=== PATIENT | male | born 1940 | race Caucasian/White ===

== ENCOUNTER 2017-08-02 18:41 | Inpatient (IN) | payer OTHER ==
[~2017-08-02] VITALS: Ht 180.3 cm; Wt 65.1 kg
[2017-08-02 18:41] VITALS: BP 150/67
[~2017-08-02 18:41] MED LIST: AMOXICILLIN500 M3 PO; ASPIRIN81 M1 PO; AVODART0.5 MG PO; COMBIVENT RESPIM4 GM INH; COUMADIN2.5 MG PO; COUMADIN7.5 M1 PO; LISINOPRIL5 MG PO; PRILOSEC40 M1 PO; RENAL CAPS1 SGL PO; RENVELA800 MG PO; ROBITUSSIN AC 110 ML PO; SIMVASTATIN40 MG PO; TOPROL XL25 MG PO; TRIPHROCAPS SOFT1 MG PO; TYLENOL325 M1 PO; TYLENOL500 MG PO; WARFARIN SOD2 MG PO
--- NOTE | 2017-08-02 19:04 | NUR ---
NURSE TO NURSE REPORT GIVEN TO THIS RN.PT RESTING IN BED AT THIS TIME.DENIES ANY NEEDS AT THIS TIME.
[2017-08-02 19:50] LABS: BASO % 0.5 % (0.0-1.0); EOS # 0.2 10*3/uL (0.0-0.4); EOS % 3.7 % (1.0-4.0); HEMATOCRIT 30.4 % (42.0-52.0); HEMOGLOBIN 9.9 g/dl (14.0-18.0); LYMPH # 0.7 10*3/uL (1.3-4.4); MEAN CELL VOLUME 106.7 fl (80.0-94.0); MEAN CORPUSCULAR HGB 34.7 pg (27.0-31.0); MEAN CORPUSCULAR HGB CONC 32.6 g/dl (33.0-37.0); MEAN PLATELET VOLUME 10.2 fl (9.6-12.3); MONO # 0.5 10*3/uL (0.1-1.0); MONO % 7.8 % (3.0-9.0); NEUT # 4.9 10*3/uL (2.3-7.9); NEUT % 76.5 % (47.0-73.0); PLATELET COUNT AUTOMATED 115 10*3/uL (130-400); RED BLOOD COUNT 2.85 10*6/uL (4.50-5.90); WHITE BLOOD COUNT 6.4 10*3/uL (4.8-10.8)
[2017-08-02 19:58] VITALS: BP 129/62
[2017-08-02 20:07] LABS: ALBUMIN 3.7 gm/dl (3.1-4.5); CREATININE 4.57 mg/dL (0.70-1.30); POTASSIUM 4.6 mmol/L (3.5-5.1); TOTAL PROTEIN 7.1 gm/dL (6.4-8.2)
--- NOTE | 2017-08-02 20:09 | NUR ---
PT IV IN RT HAND REMOVED INTACT AND PRESSURE DRESSING APPLIED.PT C/O PAIN WITH INFUSION OF NORMAL SALINE.20GAUGE ANGIOCATH PLACED RAC.IV FLUSHES WELL WITH GOO BLOOD RETURN.NORMAL SALINE INFUSING.
--- NOTE | 2017-08-02 20:12 | NUR ---
LAB CALLED WITH CRITICAL VALUE OF TROPONIN 0.067.SHLOMO ELLIS NOTIFIED.
[2017-08-02 20:13] LABS: INTERNATIONAL NORM RATIO 2.1 (2.0-3.5); TROPONIN I 0.067 ng/ml (<0.045)
[2017-08-02 21:42] VITALS: BP 138/60
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
[2017-08-02 22:20] VITALS: BP 161/59
[2017-08-02 22:57] VITALS: BP 138/60
[2017-08-03 04:00] VITALS: BP 120/42
[2017-08-03 04:57] LABS: BASO % 0.5 % (0.0-1.0); EOS # 0.4 10*3/uL (0.0-0.4); EOS % 5.2 % (1.0-4.0); HEMATOCRIT 26.8 % (42.0-52.0); HEMOGLOBIN 8.8 g/dl (14.0-18.0); LYMPH # 1.4 10*3/uL (1.3-4.4); LYMPH % 18.8 % (27.0-41.0); MEAN CELL VOLUME 106.3 fl (80.0-94.0); MEAN CORPUSCULAR HGB 34.9 pg (27.0-31.0); MEAN CORPUSCULAR HGB CONC 32.8 g/dl (33.0-37.0); MONO # 0.7 10*3/uL (0.1-1.0); MONO % 8.8 % (3.0-9.0); NEUT # 4.9 10*3/uL (2.3-7.9); NEUT % 66.6 % (47.0-73.0); PLATELET COUNT AUTOMATED 105 10*3/uL (130-400); RED BLOOD COUNT 2.52 10*6/uL (4.50-5.90); RED CELL DISTRI WIDTH 14.1 % (0-14.5); WHITE BLOOD COUNT 7.4 10*3/uL (4.8-10.8)
[2017-08-03 05:12] LABS: ACT PARTIAL THROMBO TIME 31.4 SECONDS (20.8-31.5); INTERNATIONAL NORM RATIO 2.1 (2.0-3.5)
[2017-08-03 05:32] LABS: ALBUMIN 3.4 gm/dl (3.1-4.5); CREATININE 5.3 mg/dL (0.70-1.30); FREE T4 0.88 ng/dl (0.76-1.46); PHOSPHOROUS 3.6 mg/dL (2.5-4.9); POTASSIUM 4.1 mmol/L (3.5-5.1); TOTAL PROTEIN 6.4 gm/dL (6.4-8.2)
[2017-08-03 05:36] LABS: THYROID STIM HORMONE (HS) 2.47 uIU/ml (0.358-4.75)
--- NOTE | 2017-08-03 07:50 | NUR ---
IN TO SEE PT, PT ALERT ORIENTED AND PLEASANT/COOPERTIVE. ASSESSMENT COMPLETE, HEART RATE 75 PER CM. NO PAIN OR SOB NOTED. RESPIRATIONS EASY AND UNLABORED. NO S/S OF DISTRESS. PT ENCOURAGED TO USE CALL LIGHT FOR ANY NEEDS/CONCERNS.
[2017-08-03 07:58] LABS: VITAMIN D, 25-HYDROXY 38.1 ng/mL (30-100)
[2017-08-03 08:00] VITALS: BP 120/64; BP 148/56
--- NOTE | 2017-08-03 08:15 | NUR ---
LAB NOTIFIED THIS NURSE OF CRITICAL TROPONIN FOR PT OF 0.084. WILL NOTIFY PHYSICIAN.
--- NOTE | 2017-08-03 08:20 | NUR ---
DR. HINDS NOTIFIED OF CRITICAL TROPONIN LEVEL FOR PT. NO NEW ORDERS AT THIS TIME.
--- NOTE | 2017-08-03 08:30 | NUR ---
Database Designer in to talk to patient. Patient states lives at HOME with HIS GIRLFRIEND OF 35 YEARS. There are 4 steps in the home. Physician: DR EDEN Pharmacy: [facility] Home health services: NONE Patient's level of ADLs: INDEPENDENT Patient has working utilities: YES DME: NONE Follow-up physician's appointment after d/c: WILL BE MADE PRIOR TO DC Does patient want to access PORTAL?: Discharge plan HOME. JOYCELYN MCKEON
--- NOTE | 2017-08-03 08:44 | NUR ---
DR. CEDILLO CONSULTED AT THIS TIME FOR PT PER DR. HINDS REQUEST.
--- NOTE | 2017-08-03 10:00 | NUR ---
PATIENT BATHED/SHAVED, TOLERATED MOVED TO BEDSIDE RECLINER FOR THE ENJOYMENT OF BREAKFAST, ON A CLEAR LIQUID DIET. MELINA GANDHI
--- NOTE | 2017-08-03 10:02 | NUR ---
DOCTOR IN TO SEE PT, ORDERS RECIEVED YOCASTA ZUNIGA SPCC
--- NOTE | 2017-08-03 10:46 | NUR ---
LAB CALLED TO NOTIFY THIS NURSE OF CRITICAL TROPONIN LEVEL. DR. HINDS NOTIFIED, NO NEW ORDERS AT THIS TIME.
--- NOTE | 2017-08-03 11:30 | NUR ---
PT WAS NOT GIVEN 1130 INSULIN LISPRO BECAUSE BLOOD SUGAR WAS AT 131. OSMAR HART SPCC
[2017-08-03 12:00] VITALS: BP 126/74
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
--- NOTE | 2017-08-03 13:53 | NUR ---
PT RESTING IN BED EATING LUNCH. PT STATES HE FEELS GOOD AND IN NO PAIN, PLEASANT AND COOPERATIVE. YOCASTA SORIANOCC
[2017-08-03 14:09] LABS: RETICULOCYTE % 1.72 % (0.50-2.50)
[2017-08-03 14:29] LABS: IRON 49 ug/dL (65-175); TOTAL IRON BINDING CAPACITY 192 ug/dl (250-450)
[2017-08-03 16:00] VITALS: BP 120/55
[2017-08-03] MEDS ORDERED: TAMSULOSIN HCL0.4 MG PO (18:45)
[2017-08-03] MEDS ORDERED: SIMVASTATIN40 MG PO (18:46)
[2017-08-03] MEDS ORDERED: LISINOPRIL5 MG PO (18:46)
[2017-08-03] MEDS ORDERED: FUROSEMIDE40 MG PO (18:48)
[2017-08-03] MEDS ORDERED: DUTASTERIDE0.5 MG PO (18:50)
--- NOTE | 2017-08-03 19:33 | NUR ---
PT MED REC UPDATED PER 'S MEDICATION BOTTLES THAT SHE BROUGHT IN. DR. FARIA NOTIFIED.
[2017-08-03 20:00] VITALS: BP 146/61
[2017-08-04] VITALS: BP 127/70
--- NOTE | 2017-08-04 04:54 | NUR ---
24 HR chart check completed.
[2017-08-04 06:24] LABS: BASO % 0.4 % (0.0-1.0); EOS # 0.5 10*3/uL (0.0-0.4); EOS % 7.3 % (1.0-4.0); HEMATOCRIT 26.3 % (42.0-52.0); HEMOGLOBIN 8.6 g/dl (14.0-18.0); LYMPH % 14.4 % (27.0-41.0); MEAN CELL VOLUME 104.8 fl (80.0-94.0); MEAN CORPUSCULAR HGB 34.3 pg (27.0-31.0); MEAN CORPUSCULAR HGB CONC 32.7 g/dl (33.0-37.0); MEAN PLATELET VOLUME 10.5 fl (9.6-12.3); MONO # 0.6 10*3/uL (0.1-1.0); MONO % 8.5 % (3.0-9.0); NEUT # 4.7 10*3/uL (2.3-7.9); NEUT % 69.1 % (47.0-73.0); PLATELET COUNT AUTOMATED 104 10*3/uL (130-400); RED BLOOD COUNT 2.51 10*6/uL (4.50-5.90); RED CELL DISTRI WIDTH 14.1 % (0-14.5); WHITE BLOOD COUNT 6.7 10*3/uL (4.8-10.8)
[2017-08-04 06:49] LABS: CREATININE 7.72 mg/dL (0.70-1.30); POTASSIUM 4.1 mmol/L (3.5-5.1)
--- NOTE | 2017-08-04 07:05 | NUR ---
WEIGHT 147.4. PATIENT UPSET D/T [facility] JUST CALLING AND STATEING SHE WOULD BE HERE IN ALITTLE WHILE. HE WANTED THEM HERE AT 0530.
[2017-08-04 07:11] LABS: INTERNATIONAL NORM RATIO 2.1 (2.0-3.5)
[2017-08-04 08:00] VITALS: BP 150/70
--- NOTE | 2017-08-04 08:23 | NUR ---
PT WISHING TO LEAVE TODAY AND DOES NOT WANT TO HAVE INPATIENT DIALYSIS. DIALYSIS NURSE AND DR. OZUNA NOTIFIED. DR. GARCIA TO THE FLOOR TO SPEAK WITH THE PATIENT AND IS AWARE PATIENT MAY SIGN OUT AGAINST MEDICAL ADVICE.
--- NOTE | 2017-08-04 09:22 | NUR ---
PT REQUESTS IV TO BE TAKEN OUT BUT THIS NURSE EXPLAINED TO HIM THE IMPORTANCE OF IT WHILE HE WAS HERE. HE THEN PICKED AT IT UNTIL IT WAS BLEEDING THROUGH THE DRESSING AND WHEN I WENT TO TAKE IT OUT HE STATED "NEXT TIME I WILL GO TO [place]." HE WAS UPSET THAT HIS ARM HAIR WAS STUCK IN THE TAPE. PT TO SIGN OUT AMA PER HIM WHEN HIS GETS HERE.
--- NOTE | 2017-08-04 09:28 | NUR ---
PER DR. OZUNA PATIENT MAY HAVE DIALYSIS LATER TODAY OR TOMORROW IF HE SIGNS OUT AGAINST MEDICAL ADVICE.
--- NOTE | 2017-08-04 10:01 | NUR ---
DR. MARTEL INFORMED THAT PATIENT SIGNED OUT AGAINST MEDICAL ADVICE.
--- NOTE | 2017-08-04 10:02 | NUR ---
DR. GARCIA INFORMED THAT PATIENT SIGNED OUT AGAINST MEDICAL ADVICE.
--- NOTE | 2017-08-04 10:02 | NUR ---
SALON COORDINATOR DEANA INFORMED THAT PATIENT SIGNED OUT AGAINST MEDICAL ADVICE.
--- NOTE | 2017-08-04 10:03 | NUR ---
PT SIGNED OUT AGAINST MEDICAL ADVICE AND WAS TRANSPORTED OFF THE FLOOR VIA WHEELCHAIR AT THIS TIME. HEPLOCK AND PERMIT COORDINATOR DISCONTINUED. VSS.
== END 2017-08-04 10:03 | disposition left against medical advice (07) | DRG 312 ==
LOC: ED 18:41 → EDHOLD 21:17 → 4E 21:17
PROVIDERS: Internal Medicine; Physician Assistant; Student in an Organized Health Care Education/Training Program; ADMIT Emergency Medicine
DX: R55 Syncope and collapse (principal); I13.2 Hypertensive heart and chronic kidney disease with heart failure and with stage 5 chronic kidney disease, or end stage renal disease; E87.8 Other disorders of electrolyte and fluid balance, not elsewhere classified; D68.59 Other primary thrombophilia; D69.6 Thrombocytopenia, unspecified; I27.20 Pulmonary hypertension, unspecified; N18.6 End stage renal disease; I42.0 Dilated cardiomyopathy; I50.22 Chronic systolic (congestive) heart failure; N40.0 Benign prostatic hyperplasia without lower urinary tract symptoms; K21.9 Gastro-esophageal reflux disease without esophagitis; I48.2 Chronic atrial fibrillation; D53.9 Nutritional anemia, unspecified; Z53.21 Procedure and treatment not carried out due to patient leaving prior to being seen by health care provider; I25.10 Atherosclerotic heart disease of native coronary artery without angina pectoris; E78.5 Hyperlipidemia, unspecified; Z79.01 Long term (current) use of anticoagulants; Z95.2 Presence of prosthetic heart valve; Z79.2 Long term (current) use of antibiotics; Z79.82 Long term (current) use of aspirin; Z79.899 Other long term (current) drug therapy; Z85.038 Personal history of other malignant neoplasm of large intestine; Z90.49 Acquired absence of other specified parts of digestive tract; Z95.1 Presence of aortocoronary bypass graft; Z82.49 Family history of ischemic heart disease and other diseases of the circulatory system; Z83.3 Family history of diabetes mellitus; Z99.2 Dependence on renal dialysis; Y93.89 Activity, other specified; Y92.89 Other specified places as the place of occurrence of the external cause; Y99.8 Other external cause status; V89.2XXA Person injured in unspecified motor-vehicle accident, traffic, initial encounter; S51.819A Laceration without foreign body of unspecified forearm, initial encounter

== ENCOUNTER → 2017-11-16 | Outpatient (CLI) | payer OTHER ==
[~2017-11-16] MED LIST changes: +DUTASTERIDE0.5 MG PO; +FUROSEMIDE40 MG PO; +TAMSULOSIN HCL0.4 MG PO
[2017-11-16 16:33] LABS: HEMATOCRIT 27.7 % (42.0-52.0); HEMOGLOBIN 8.9 g/dl (14.0-18.0); MEAN CELL VOLUME 112.6 fl (80.0-94.0); MEAN CORPUSCULAR HGB 36.2 pg (27.0-31.0); MEAN CORPUSCULAR HGB CONC 32.1 g/dl (33.0-37.0); MEAN PLATELET VOLUME 11.3 fl (9.6-12.3); PLATELET COUNT AUTOMATED 92 10*3/uL (130-400); RED BLOOD COUNT 2.46 10*6/uL (4.50-5.90); RED CELL DISTRI WIDTH 17.2 % (0-14.5)
[2017-11-16 16:48] LABS: IRON 58 ug/dL (65-175); TOTAL IRON BINDING CAPACITY 225 ug/dl (250-450)
[2017-11-16 16:52] LABS: PLATELET SUFFICIENCY LOW (NORMAL); SCHISTOCYTES FEW; TOTAL CELLS COUNTED 100 #CELLS
[2017-11-16 16:53] LABS: BURR CELLS FEW; OVALOCYTES FEW
[2017-11-16 16:54] LABS: POLYCHROMASIA SLIGHT
== END | disposition home or self-care (01) ==
LOC: LAB 15:58
PROVIDERS: Family Medicine
DX: I48.1 Persistent atrial fibrillation (principal); D50.0 Iron deficiency anemia secondary to blood loss (chronic)

== ENCOUNTER → 2018-03-14 | Outpatient (CLI) | payer OTHER ==
[~2018-03-14] MED LIST changes: +ARNUITY ELLIPT50 MCG NAS; +CARVEDILOL3.125 MG PO; +MEN 50 PLUS MU1 EACH PO; +VITAMIN D32000 UNIT PO; +WARFARIN SOD5 MG PO; +ZYRTEC10 MG PO
== END | disposition home or self-care (01) ==
LOC: US 15:42
DX: I65.23 Occlusion and stenosis of bilateral carotid arteries (principal)

== ENCOUNTER 2018-09-12 15:48 | Emergency (ER) | payer OTHER ==
[~2018-09-12] VITALS: Ht 180.3 cm; Wt 65.3 kg
== END 2018-09-12 17:13 | disposition home or self-care (01) ==
LOC: ED 15:48
DX: S49.91XA Unspecified injury of right shoulder and upper arm, initial encounter (principal); Z79.01 Long term (current) use of anticoagulants; Z79.899 Other long term (current) drug therapy; W22.8XXA Striking against or struck by other objects, initial encounter; Y93.89 Activity, other specified; Y92.89 Other specified places as the place of occurrence of the external cause; Y99.8 Other external cause status